=== PATIENT | female | born 2005 | race Caucasian/White ===

== ENCOUNTER 2025-02-25 22:02 | Emergency (ER) | payer OTHER ==
--- NOTE | 2025-02-25 22:19 | ERPHSYRPT ---
- History of Present Illness Time Seen by Provider: 02/25/25 22:19 Source: patient, family Exam Limitations: clinical condition Physician History: This is a 19-year-old white female patient brought to the emergency department by private vehicle secondary to headache. Patient did undergo a CT scan of the head without contrast mobile battery technician on 02/24/2025. It did not show any acute intracranial abnormality. I reviewed that report. However, the patient family reported that there was a "tumor". The the radiologist's interpretation of that exam does not support that claim. She does not have chest pain. She does not have abdominal pain. She has not had any nausea vomiting or diarrhea symptoms. Patient has a history of seizure disorders. While the patient was waiting in the emergency department she had a "seizure". Patient did state that she was compliant with her medications. She is under a significant amount of stress and anxiety. Within the last 2 days, her brother was arrested and incarcerated. Her boyfriend also within the last 2 days. Patient is very tearful. She denies abdominal pain. She denies nausea vomiting and diarrhea symptoms. She did not soil her close with stool or urine. Timing/Duration: today Severity: mild (Mild to moderate) Character of Deficits: none Deficits: no difficulties Baseline/Normal Cognition: alert oriented x 3 Current Cognition: alert oriented x 3 Baseline Gait: walks w/o assistance Associated Symptoms: denies symptoms Allergies/Adverse Reactions: No Known Drug Allergies Allergy (Verified 02/24/25 00:32) Home Medications: Dextroamphetamine/Amphetamine [Adderall 15 mg Tablet] 15 mg PO DAILY PRN PRN 02/24/25 [History] Lurasidone HCl 40 mg PO DAILY 02/24/25 [History] Trazodone HCl 50 mg PO DAILY PRN PRN 02/24/25 [History] hydrOXYzine HCL [Hydroxyzine HCl] 50 mg PO DAILY 02/24/25 [History] lamoTRIgine [Lamotrigine] 25 mg PO DAILY 02/24/25 [History] Hx Tetanus, Diphtheria Vaccination/Date Given: No Hx Influenza Vaccination/Date Given: No Hx Pneumococcal Vaccination/Date Given: No Travel Risk - International Travel Have you traveled outside of the country in past 3 weeks: No - Emerging Infectious Disease Are you exhibiting symptoms associated with any current EIDs: No - Review of Systems Constitutional: No Symptoms Eyes: No Symptoms Ears, Nose, & Throat: No Symptoms Respiratory: No Symptoms Cardiac: No Symptoms Abdominal/Gastrointestinal: No Symptoms Genitourinary Symptoms: No Symptoms Musculoskeletal: No Symptoms Skin: No Symptoms Neurological: Headache, Seizure Psychological: Anxiety, Emotional Lability, No Suicidal Ideations, No Homicidal Ideations Endocrine: No Symptoms Hematologic/Lymphatic: No Symptoms Immunological/Allergic: No Symptoms All Other Systems: Reviewed and Negative - Past Medical History Pertinent Past Medical History: Yes Neurological History: Epilepsy ENT History: No Pertinent History Cardiac History: No Pertinent History Respiratory History: No Pertinent History Endocrine Medical History: No Pertinent History Musculoskeletal History: Fractures GI Medical History: No Pertinent History History: No Pertinent History Psycho-Social History: Anxiety, Bipolar, Depression Female Reproductive Disorders: No Pertinent History 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 feet, cysts removed from mouth - Female History Hx Last Menstrual Period: none - Social History Smoking Status: Never smoker Exposure to second hand smoke: No Drug Use: none - Social Determinants of Health Will the patient participate in the screening: Yes Do you worry about a steady place to live?: No In the past 12 months,have you had to go without utilities?: No Transportation Issues: No Has anyone in your support network made you feel unsafe?: No Have you or anyone in your house had to go w/o enough food: No - Nursing Vital Signs Nursing Vital Signs: Initial Vital Signs Temperature 98.3 F 02/25/25 22:02 Pulse Rate 105 H 02/25/25 22:02 Respiratory Rate 22 02/25/25 22:02 Blood Pressure 140/112 02/25/25 22:02 O2 Sat by Pulse Oximetry 98 02/25/25 22:02 Pain Scale Pain Intensity 3 - [place] Coma Scale Best Eye Response (Mick): (4) open spontaneously Best Verbal Response (Mick): (5) oriented Best Motor Response ([place]): (6) obeys commands Mick Total: 15 - Physical Exam General Appearance: no apparent distress, alert, anxiety Eye Exam: bilateral eye: normal inspection, PERRL, EOMI Ears, Nose, Throat Exam: normal ENT inspection, moist mucous membranes Neck Exam: normal inspection, non-tender, supple, full range of motion Respiratory: normal breath sounds, lungs clear, airway intact, No chest tenderness, No respiratory distress Cardiovascular: regular rate/rhythm, normal heart sounds, normal peripheral pulses Gastrointestinal: soft, normal bowel sounds, No tenderness Pelvic Exam: not done Rectal Exam: not done Back Exam: normal inspection, normal range of motion, No CVA tenderness, No vertebral tenderness Extremity Exam: normal inspection, normal range of motion, pelvis stable Mental Status: alert, oriented x 3, 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 No acute ischemia on today's twelve-lead EKG) Ordered Tests: Active Orders 24 hr Category Date Time Status Armhole Feller Handstitching Machine STAT Care 02/25/25 22:41 Active Clean Catch Urine Specimen STAT Care 02/25/25 22:39 Active EKG-ER Only STAT Care 02/25/25 22:39 Active IV Insertion STAT Care 02/25/25 22:39 Active POCT Glucose Check STAT Care 02/25/25 22:39 Active Pulse Oximetry (ED) STAT Care 02/25/25 22:39 Active HEAD WITHOUT CONTRAST [CT] Stat Exams 02/25/25 22:42 Completed CBC W DIFF Stat Lab 02/25/25 22:50 Completed CMP Stat Lab 02/25/25 22:50 Completed CULTURE,URINE Stat Lab 02/25/25 23:40 Received HCG QUALITATIVE, SERUM Stat Lab 02/25/25 22:50 Completed POCT GLUCOSE Stat Lab 02/25/25 22:46 Completed UA W/RFX UR CULTURE Stat Lab 02/25/25 23:40 Completed Urine Triage Profile Stat Lab 02/25/25 23:40 Completed Medication Summary Discontinued Medications Generic Name Dose Route Start Last Admin Trade Name Freq PRN Reason Stop Dose Admin Sodium Chloride 1,000 mls @ 999 mls/hr 02/25/25 22:39 02/25/25 23:58 Sodium Chloride 0.9% 1000 Ml IV 02/25/25 23:39 Infused .Q1H1M STA Infusion Sodium Chloride Confirm 02/25/25 22:56 Sodium Chloride 0.9% 1000 Ml Administered 02/25/25 22:57 Dose 1,000 mls @ ud .ROUTE .STK-MED ONE Lorazepam 1 mg 02/25/25 22:39 02/25/25 23:00 Lorazepam 2 Mg/1 Ml 2 Mg Vial IV 02/25/25 22:40 1 mg STAT ONE Administration Lorazepam Confirm 02/25/25 22:56 Lorazepam 20 Mg/10 Ml Mdv 2 Mg/Ml For Single Doses Administered 02/25/25 22:57 Dose 20 mg .ROUTE .STK-MED ONE Ondansetron HCl 4 mg 02/25/25 22:39 02/25/25 23:01 Ondansetron Hcl 4 Mg/2 Ml Vial IV 02/25/25 22:40 4 mg STAT ONE Administration Ondansetron HCl Confirm 02/25/25 22:54 Ondansetron Hcl 4 Mg/2 Ml Vial Administered 02/25/25 22:55 Dose 4 mg .ROUTE .STK-MED ONE Lab/Rad Data: Laboratory Result Diagrams 02/25/25 22:50 02/25/25 22:50 Laboratory Results 02/25/25 02/25/25 02/25/25 Range/Units 23:40 23:40 22:50 WBC (3.98-10.04) x10^3/uL RBC (3.93-5.22) x10^6/uL Hgb (11.2-15.7) g/dL Hct (34.1-44.9) % MCV (79.4-94.8) fL MCH (25.6-32.2) pg MCHC (32.2-35.5) g/dL RDW (11.7-14.4) % Plt Count (182-369) x10^3/uL MPV (9.4-12.3) fL Gran % (34.0-71.1) % Immature Gran % (Auto) (0.001-0.429) % Nucleat RBC Rel Count (0.00-0.2) % Eos # (Auto) (0.04-0.36) x10^3/uL Immature Gran # (Auto) (0.001-0.031) x10^3u/L Absolute Lymphs (auto) (1.18-3.74) x10^3/uL Absolute Monos (auto) (0.24-0.86) x10^3/uL Absolute Nucleated RBC (0.00-0.012) x10^3u/L Lymphocytes % (19.3-51.7) % Monocytes % (4.7-12.5) % Eosinophils % (0.7-5.8) % Basophils % (0.1-1.2) % Absolute Granulocytes (1.56-6.13) x10^3/uL Basophils # (0.01-0.08) x10^3/uL Sodium (135-145) mmol/L Potassium (3.5-5.1) mmol/L Chloride (98-107) mmol/L Carbon Dioxide (22-30) mmol/L Anion Gap (5-15) MEQ/L BUN (7-17) mg/dL Creatinine (0.52-1.04) mg/dL Estimated GFR ML/MIN Glucose (74-106) mg/dL POC Glucometer (74 to 106) mg/dL Calcium (8.4-10.2) mg/dL Total Bilirubin (0.2-1.3) mg/dL AST (14-36) U/L ALT (0-35) U/L Alkaline Phosphatase (38-126) U/L Serum Total Protein (6.3-8.2) g/dL Albumin (3.5-5.0) g/dL Serum HCG, Qual NEGATIVE (NEGATIVE) Urine Color Yellow (Yellow) Urine Appearance Clear (Clear) Urine pH 6.5 (4.6-8.0) Ur Specific [place] 1.025 (1.005-1.030) Urine Protein Trace A (Negative) Urine Glucose (UA) Negative (Negative) mg/dL Urine Ketones Negative (Negative) Urine Blood Negative (Negative) Urine Nitrite Negative (Negative) Urine Bilirubin Negative (Negative) Urine Urobilinogen 1.0 A (0.2) mg/dL Ur Leukocyte Esterase Moderate A (Negative) U Hyaline Cast (Auto) NONE SEEN (0-2) /LPF Urine Microscopic RBC 0-2 (0-5) /HPF Urine Microscopic WBC 11-20 A (0-5) /HPF Ur Epithelial Cells Few (None Seen) /HPF Urine Bacteria Moderate A (None Seen) /HPF Urine Culture Reflexed YES (NO) Urine Opiates Level NEGATIVE (NEGATIVE) Ur Methadone NEGATIVE (NEGATIVE) Urine Barbiturates NEGATIVE (NEGATIVE) Ur Phencyclidine (PCP) NEGATIVE (NEGATIVE) Urine Amphetamine NEGATIVE (NEGATIVE) U Benzodiazepine Level NEGATIVE (NEGATIVE) Urine Cocaine NEGATIVE (NEGATIVE) Urine Marijuana (THC) NEGATIVE (NEGATIVE) Slides for Path Review 02/25/25 02/25/25 02/25/25 Range/Units 22:50 22:50 22:46 WBC 12.6 H (3.98-10.04) x10^3/uL RBC 4.92 (3.93-5.22) x10^6/uL Hgb 13.5 (11.2-15.7) g/dL Hct 41.5 (34.1-44.9) % MCV 84.3 (79.4-94.8) fL MCH 27.4 (25.6-32.2) pg MCHC 32.5 (32.2-35.5) g/dL RDW 12.7 (11.7-14.4) % Plt Count 335 (182-369) x10^3/uL MPV 10.6 (9.4-12.3) fL Gran % 53.3 (34.0-71.1) % Immature Gran % (Auto) 0.5 H (0.001-0.429) % Nucleat RBC Rel Count 0.0 (0.00-0.2) % Eos # (Auto) 0.81 H (0.04-0.36) x10^3/uL Immature Gran # (Auto) 0.06 H (0.001-0.031) x10^3u/L Absolute Lymphs (auto) 4.10 H (1.18-3.74) x10^3/uL Absolute Monos (auto) 0.83 (0.24-0.86) x10^3/uL Absolute Nucleated RBC 0.00 (0.00-0.012) x10^3u/L Lymphocytes % 32.6 (19.3-51.7) % Monocytes % 6.6 (4.7-12.5) % Eosinophils % 6.4 H (0.7-5.8) % Basophils % 0.6 (0.1-1.2) % Absolute Granulocytes 6.69 H (1.56-6.13) x10^3/uL Basophils # 0.07 (0.01-0.08) x10^3/uL Sodium 141 (135-145) mmol/L Potassium 4.3 (3.5-5.1) mmol/L Chloride 109 H (98-107) mmol/L Carbon Dioxide 21 L (22-30) mmol/L Anion Gap 15.7 H (5-15) MEQ/L BUN 10 (7-17) mg/dL Creatinine 0.68 (0.52-1.04) mg/dL Estimated GFR 128.6 ML/MIN Glucose 98 (74-106) mg/dL POC Glucometer 96 (74 to 106) mg/dL Calcium 9.6 (8.4-10.2) mg/dL Total Bilirubin 0.20 (0.2-1.3) mg/dL AST 36 (14-36) U/L ALT 34 (0-35) U/L Alkaline Phosphatase 82 (38-126) U/L Serum Total Protein 8.1 (6.3-8.2) g/dL Albumin 4.5 (3.5-5.0) g/dL Serum HCG, Qual (NEGATIVE) Urine Color (Yellow) Urine Appearance (Clear) Urine pH (4.6-8.0) Ur Specific [place] (1.005-1.030) Urine Protein (Negative) Urine Glucose (UA) (Negative) mg/dL Urine Ketones (Negative) Urine Blood (Negative) Urine Nitrite (Negative) Urine Bilirubin (Negative) Urine Urobilinogen (0.2) mg/dL Ur Leukocyte Esterase (Negative) U Hyaline Cast (Auto) (0-2) /LPF Urine Microscopic RBC (0-5) /HPF Urine Microscopic WBC (0-5) /HPF Ur Epithelial Cells (None Seen) /HPF Urine Bacteria (None Seen) /HPF Urine Culture Reflexed (NO) Urine Opiates Level (NEGATIVE) Ur Methadone (NEGATIVE) Urine Barbiturates (NEGATIVE) Ur Phencyclidine (PCP) (NEGATIVE) Urine Amphetamine (NEGATIVE) U Benzodiazepine Level (NEGATIVE) Urine Cocaine (NEGATIVE) Urine Marijuana (THC) (NEGATIVE) Slides for Path Review YES - Progress Progress: improved, re-examined Progress Note: 02/25/25 23:16 My medical decision making and the assignment of moderate complexity of this patient's medical issue today is based on review of the patient's past medical history, review the patient's medication list, reviewed patient drug allergy list, history present of some physical findings on examination. The workup in this patient includes placement of intravenous line, infusion of normal saline solution, infusion of Ativan 1 mg, CBC, CMP, urine drug triage, urinalysis, test, CBC, CMP, twelve-lead EKG and CT scan of the head without contrast. Differential diagnosis includes was not limited to noncompliance with seizure medication, anxiety/stress, urinary tract infection, positive urine drug triage, anemia, electrolyte abnormalities, acute intracranial abnormality. 02/26/25 00:13 I interpreted the patient's laboratory data results. Based on laboratory data results, the patient has leukocytosis and a urinary tract infection. There are no other acute, emergent medical issues. CT scan of the head without contrast was interpreted by the radiologist and comparison made to similar study dated 02/24/2025. There are no acute abnormalities identified in the brain. There is no significant interval change from the CT scan performed 02/24/2025. 02/26/25 00:30 Counseled pt/family regarding: lab results, diagnosis, need for follow-up, rad results Medical Desision Making - Independent Historian Additional History obtained from: Family - Diagnostic Testing Diagnostic test were ordered, analyzed, and reviewed by me: Yes Radiological Interpretation: Reviewed by me, Teleradiologist Report - Risk of complications Low Risk: Low risk of morbidity from additional dx testing or treatment The pt has a mod risk of morbidity or mortality based on: Need for prescription drug management - Departure Departure Disposition: Home Clinical Impression: Anxiety in acute stress reaction, Seizure disorder, UTI (urinary tract infection) Condition: Stable Critical Care Time: No Referrals: DOCTOR,NO FAMILY [Primary Care Provider, UNKNOWN] - Follow up/PCP as directed Additional Instructions: Drink plenty of fluids. Take all your medications as prescribed. Take your antibiotics as prescribed. Call your prescribing provider later today, 02/26/2025, to make arrangements for follow-up appointment for further evaluation management.
[2025-02-25 22:51] VITALS: TEMP 98.3
[2025-02-25] MEDS ORDERED: Zofran 4 MG/2 ML VIAL ONE (22:54)
[2025-02-25] MEDS ORDERED: ATIVAN 2 MG/ML MDV FOR SINGLE DOSES ONE (22:56)
[2025-02-25 22:57] LABS: BASOPHIL % 0.6 % (0.1-1.2); Basophil (Absolute #) 0.07 x10^3/uL (0.01-0.08); Eosinophil (Absolute #) 0.81 x10^3/uL (0.04-0.36); Hematocrit 41.5 % (34.1-44.9); Hemoglobin 13.5 g/dL (11.2-15.7); IMMATURE GRAN # 0.06 x10^3u/L (0.001-0.031); IMMATURE GRAN % 0.5 % (0.001-0.429); Lymphocyte (Absolute #) 4.10 x10^3/uL (1.18-3.74); Mean Corpuscular Hemoglobin 27.4 pg (25.6-32.2); Mean Corpuscular Hgb Concent. 32.5 g/dL (32.2-35.5); Monocyte (Absolute #) 0.83 x10^3/uL (0.24-0.86); NUCLEATED RBC # 0.00 x10^3u/L (0.00-0.012); NUCLEATED RBC % 0.0 % (0.00-0.2); Platelet Count 335 x10^3/uL (182-369); Red Blood Count 4.92 x10^6/uL (3.93-5.22); White Blood Count 12.6 x10^3/uL (3.98-10.04)
[2025-02-25] MEDS: Ativan 2 MG/1 ML VIAL IV ONE (23:00)
[2025-02-25] MEDS: Zofran 4 MG/2 ML VIAL IV ONE (23:01)
[2025-02-25 23:13] LABS: HCG SERUM TEST NEGATIVE (NEGATIVE)
[2025-02-25 23:17] LABS: Calcium 9.6 mg/dL (8.4-10.2); Carbon Dioxide 21.0 mmol/L (22-30); Creatinine 1 0.68 mg/dL (0.52-1.04); EST GLOMERULAR FILTRATION RATE 128.6 ML/MIN; Glucose 98.0 mg/dL (74-106); Potassium 4.3 mmol/L (3.5-5.1); SGOT/AST 36.0 U/L (14-36); SGPT/ALT 34.0 U/L (0-35); Total Protein 8.1 g/dL (6.3-8.2)
--- NOTE | 2025-02-26 00:05 | XRAY ---
CLINICAL HISTORY: Breakthrough seizure COMPARISON: 02/24/2025 TECHNIQUE: Axial non-contrast CT scan of the brain was performed from the skull base to the high parietal region. One of the following dose reduction techniques was utilized for this exam: automated exposure control, adjustment of the mA and/or kV according to patient size, or use of iterative reconstruction. FINDINGS: Brain Parenchyma: There is normal attenuation of the cerebral hemispheres, cerebellum, and brainstem. There is no evidence of acute infarct, hemorrhage, or mass effect. There are no abnormal areas of hypoattenuation or hyperattenuation. Ventricular System: The ventricles are normal in size and configuration. There is no evidence of hydrocephalus or ventricular enlargement. Subarachnoid Spaces: The sulci and cisterns appear normal. There is no evidence of subarachnoid hemorrhage or extra-axial fluid collections. Cerebellum and Brainstem: There are no masses, lesions, or areas of abnormal density. Orbits: There is normal appearance of the globes, optic nerves, and extraocular muscles. There is no evidence of orbital masses or abnormal density. Sinuses: The paranasal sinuses are clear. There is no evidence of sinusitis or mucosal thickening. Mastoid Air Cells: The mastoid air cells are clear. There is no evidence of mastoiditis. Skull: There is normal skull morphology. IMPRESSION: 1. No acute abnormality is identified in the brain. 2. No significant interval change is appreciated. Electronically Signed by: Santana Robledo MD. (02/26/2025 00:05:01 EDT)
[2025-02-26 00:08] LABS: Amphetamine,Urine NEGATIVE (NEGATIVE); Barbiturate,Urine NEGATIVE (NEGATIVE); Benzodiazepine,Urine NEGATIVE (NEGATIVE); Cocaine,Urine NEGATIVE (NEGATIVE); Methadone,Urine NEGATIVE (NEGATIVE); Opiate,Urine NEGATIVE (NEGATIVE); PCP,Urine NEGATIVE (NEGATIVE); THC,Urine NEGATIVE (NEGATIVE)
[2025-02-26 00:18] LABS: Slide Review 1 YES
[2025-02-26 00:23] LABS: Glucose, Urine Negative (Negative); Protein,Urine Dip Trace (Negative); RBC 0-2 /HPF (0-5)
[2025-02-26] MEDS: ROCEPHIN 1 GM / 100 ML NaCl 1 GM/100 ML IVPB IV ONE (00:35)
[2025-02-26] MEDS ORDERED: ROCEPHIN 1 GM / 100 ML NaCl 1 GM/100 ML IVPB IV ONE (00:35)
[2025-02-26 01:11] VITALS: BP 105/65; PULSE 100; RESP 20; O2SAT 98
== END 2025-02-26 01:27 | disposition home or self-care (01) ==
LOC: ED 22:02
DX: F41.1 Generalized anxiety disorder (principal); F43.0 Acute stress reaction; G40.909 Epilepsy, unspecified, not intractable, without status epilepticus; N39.0 Urinary tract infection, site not specified; R51.9 Headache, unspecified; Z79.899 Other long term (current) drug therapy